=== PATIENT | female | born 1985 | race Caucasian/White ===

== ENCOUNTER → 2020-07-23 | Outpatient (CLI) | payer OTHER ==
[~2020-07-23] MED LIST: ASPIRIN325 MG PO; CIMETIDINE200 MG PO; HYDROCODON-ACE1 EAC4 PO; IBUPROFEN800 MG PO; KEFLEX500 MG PO; OMEPRAZOLE20 M1 PO; ONDANSETRON HCL4 MG PO; PERCOCET 5-3251 EACH PO; PHENTERMINE H37.5 M1 PO; VITAMIN C500 M4 PO
== END ==
LOC: KOH-I 13:49
DX: M79.672 Pain in left foot (principal); M79.671 Pain in right foot; M25.572 Pain in left ankle and joints of left foot; M25.571 Pain in right ankle and joints of right foot
CPT/HCPCS: 73610; 73630

== ENCOUNTER 2021-04-08 00:25 | Emergency (ER) | payer OTHER ==
[2021-04-08 01:19] LABS: HEMOGLOBIN 8.6 gm/dl (12.3-15.3); RED BLOOD COUNT 4.29 M/UL (4.00-5.10); WHITE BLOOD COUNT 5.5 K/UL (4.5-11.0)
[2021-04-08 01:44] LABS: BUN/CREATININE RATIO 14 (0-10)
[2021-04-08] MEDS ORDERED: MOLNUPIRAVIR (200 MG PO (05:01)
[2021-04-08] MEDS ORDERED: PAXLOVID CO-PA1 EACH PO (05:01)
[2021-04-08] MEDS ORDERED: ASPIRIN CHEWABL81 MG PO (05:01)
== END 2021-04-08 05:25 | disposition home or self-care (01) ==
LOC: ER1 00:25
PROVIDERS: Family Medicine
DX: U07.1 COVID-19 (principal); D64.9 Anemia, unspecified; R07.9 Chest pain, unspecified
CPT/HCPCS: 0240U; 71045; 80053; 83615; 85025; 85379; 86140; 99285; Q9967

== ENCOUNTER 2021-07-15 16:24 | Emergency (ER) | payer OTHER ==
[~2021-07-15 16:24] MED LIST changes: +ASPIRIN CHEWABL81 MG PO; +MOLNUPIRAVIR (200 MG PO; +PAXLOVID CO-PA1 EACH PO
[2021-07-15 17:33] LABS: HEMOGLOBIN 8.8 gm/dl (12.3-15.3); RED BLOOD COUNT 4.37 M/UL (4.00-5.10); WHITE BLOOD COUNT 6.3 K/UL (4.5-11.0)
[2021-07-15 17:57] LABS: BUN/CREATININE RATIO 15 (0-10)
[2021-07-15] MEDS ORDERED: BUTALB-ACETAMI1 EACH PO (19:08)
== END 2021-07-15 19:45 | disposition home or self-care (01) ==
LOC: ER1 16:24
PROVIDERS: Family Medicine
DX: H53.121 Transient visual loss, right eye (principal); D64.9 Anemia, unspecified; R51.9 Headache, unspecified; E78.5 Hyperlipidemia, unspecified; K21.9 Gastro-esophageal reflux disease without esophagitis; I10 Essential (primary) hypertension
CPT/HCPCS: 70450; 71045; 80053; 81001; 82550; 82553; 84484; 84703; 85025; 93005; 99284